=== PATIENT | male | born 1955 | race Caucasian/White ===

== ENCOUNTER → 2018-10-14 | Outpatient (CLI) | payer OTHER ==
--- NOTE | 2018-10-14 17:25 | Diagnostic Imaging Report ---
Bone Scan, delayed phase INDICATION: 63 M with spondylosis with myelopathy; MRI at outside facility showed bone island in left iliac bone. COMPARISON: None available; have reviewed report from MRI from outside facility on 10/05/2018 REPORT: Approximately 2 hours following intravenous administration of 25 mCi of Tc-99m MDP, delayed total body images in the anterior and posterior projections and selected spot images were obtained. Diffusely increased tracer is seen in the cervical as well as lower thoracic and lumbar spine, consistent with degenerative change. Increased tracer activity is seen in the right sternoclavicular joint and in the feet. A left knee prosthesis is noted and has no suspicious surrounding tracer activity. Otherwise, distribution of tracer activity is unremarkable throughout the skeletal system. No abnormal accumulation of tracer is seen in the soft tissues or urinary tract. IMPRESSION: 1. Degenerative changes in the cervical and lower thoracic and lumbar spine as well as right sternoclavicular joint and feet. 2. No scan evidence of metastatic of metabolic bone disease. 3. No acute osteoblastic process in the left iliac bone to correlate with suspected bone island on recent MRI. Signed by: Dr. Kristie Castillo M.D. on 10/14/2018 5:22 PM
== END ==
LOC: NM 11:52
PROVIDERS: ATTEND Internal Medicine
DX: M89.8X9 Other specified disorders of bone, unspecified site (principal); M47.816 Spondylosis without myelopathy or radiculopathy, lumbar region
CPT/HCPCS: 78306; A9503